=== PATIENT | male | born 1940 | race Caucasian/White ===

== ENCOUNTER 2024-09-12 07:55 | Outpatient (CLI) | payer MEDICARE, SELFPAY | END 2024-09-12 07:56 | disposition home or self-care (01) | LOC: MRI 07:56 | PROVIDERS: PCP Family Medicine; Visit Provider Orthopaedic Surgery | DX: M25.561 Pain in right knee (principal); S83.281A Other tear of lateral meniscus, current injury, right knee, initial encounter; M94.261 Chondromalacia, right knee; M25.461 Effusion, right knee | CPT/HCPCS: 73721 ==

== ENCOUNTER 2024-10-02 07:45 | Outpatient (RCR) | payer MEDICARE, SELFPAY ==
--- NOTE | 2024-09-19 15:41 | PT.OPEX ---
PT [place] Outpatient Eval PT 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 Cortisone injection 09/18/24 right knee Referring MD Dr. Mendoza Subjective Preferred Name Eron Subjective Patient is a 83 year old male who presents to physical therapy with signs and symptoms consistent with right knee pain. He states that he had a cortisone injection on 09/18/24. He reports some improvement from the shot yesterday. He reports that he is going to [place] on October 07. He states that he does get some swelling in his right lower calf and that this has been going on for a long time. He reports that his physician is aware and they are figuring out what it is coming from. He states that his knee has been having pain for at least a year. No complaints of numbness or tingling in his knee. He goes to [employer] in [place]. He does some different cardio machines and leg press at the gym. He uses the steam room and whirlpool along with the cold pool as well. He also does a lot of wood cutting at his property in the [facility]. Aggravating factors include: uneven walking. Alleviating factors include: cortisone shot and sleep. Significant past medical history includes bilateral rotator cuff repairs (5 plus years ago). Patient would like to achieve less pain through physical therapy sessions. Pain Comments Today: 3.5-4/10 on a 0-10 pain scale with 10 = extreme pain At its worst: 8/10 At its best: 3.5-4/10 Current Work Status Retired Occupation Previous [employer] Precautions Weight Bearing Status Full Weight Bearing Therapy Limitations/Systems Review Not Limited Objective Other/Pertinent Objective GAIT/FUNCTIONAL MOBILITY Shuffling gait, uses cane outside (no cane today) Single leg stance: no increase in pain, difficulty maintaining balance Squat: no increase in pain KNEE ROM Extension/Flexion: R 0-115, L 0-130 HIP ROM Grossly tested WNL B LLE MMT: Hip flexion: R 4+/5 L 4+/5 Hip abduction: R 4+/5 L 4+/5 Hip extension: R 4+/5 L 4+/5 Knee flexion: R 5/5 L 5/5 Knee extension: R 5/5 L 5/5 SPECIAL TEST -Anterior drawer: neg -Ailyn test: neg -Posterior Drawer: neg -Valgus Test: neg -Varus Test: neg -Joint line tenderness: pos on R -Seth test: pos on R -hyper flexion test: neg -Lewis Compression: neg -Hip quadrant test: neg -MODESTO test: neg -FADIR test: neg -Trochanteric Bursitis Test: neg JOINT MOBILITY/PALPATION Tenderness with palpation of lateral joint line of right knee TX: Access Code: [email or web address] URL: [email or web address]/ Date: 09/19/2024 Prepared by: Amna Verduzco Exercises - Supine Quadricep Sets - 1 x daily - 7 x weekly - 3 sets - 10 reps - Supine Heel Slide - 3-5 x daily - 20 reps - Supine Short Arc Quad - 2-3 x daily - 20 reps - 3 hold - Active Straight Leg Raise with Quad Set - 2-3 x daily - 1-2 sets - 10 reps - 2-3 second hold - Sidelying Hip Abduction - 2 -3 x daily - 1-2 sets - 10 reps Functional Test Performed & Score . Assessment Assessment/Impression Pt is a 83 year old male who presents with concerns of unstable gait. Patient also has notable objective findings including limited ROM, tenderness to palpation, and decreased strength which are also likely contributing to the problem. Patient is a good candidate for skilled therapy to target deficits described above. Skilled PT intervention is necessary for use of therapeutic exercise manual therapy, neuromuscular re- education, gait training, and therapeutic activity. Functional impairments include difficulty with: standing, walking, exercising and ADLs. See appropriate sections of PT eval for complete list of goals and POC. D/C plan and criteria is for pt to achieve the goals as listed below or until max rehab potential is met. Pt was agreeable with plan of care and goals established. Primary Functional Limitations standing walking exercising ADLs Plan of Care Rehabilitation Potential Good Physical Therapy Goals Within 10-12 weeks: 1.Pt will demonstrate independence in performance of home exercise program with the use of video and/or handouts in order to optimize functional mobility and reduce risk for re-injury. 2.Pt will demonstrate consistent HEP compliance to ensure progress in reaching established goals during course of care. 3.Patient will be able to cut wood on his property for up to one hour without pain. 4.Patient will report pain levels <2/10 with all activities in order to improve functional mobility at home, work and during functional leisure activities. 5.Patient is able to sleep without waking more than one time due to pain in a 6-8 hour time frame. 6.Patient will be able to walk up to one mile without pain. 7.Pt will be able to ascend/ descend 1 flight of stairs in order to perform ADLs pain free. Coordination/Communication With Referral Source Treatment Plan/Direct Interventions Joint Mobilization,Manual Therapy,Neuromuscular Re-ed, Therapeutic Activities, Therapeutic Exercises Patient Will Be Discharged From Therapy Independently Progressing Evaluation Billing Untimed Code Treatment Minutes 30 Complexity Low Certification Information Provider Signature Required Yes Provider Signature Shows Agreement With POC & Medical Necessity Physician NPI Number Write NPI# Here Physician Comment/Change : Physician Signature & Date Requested Please Sign/Date Here
== END 2024-12-04 09:42 | disposition home or self-care (01) ==
PROVIDERS: PCP Family Medicine; Visit Provider Orthopaedic Surgery
DX: M17.11 Unilateral primary osteoarthritis, right knee (principal); S83.281A Other tear of lateral meniscus, current injury, right knee, initial encounter; Z51.89 Encounter for other specified aftercare
CPT/HCPCS: 97110; 97161

== ENCOUNTER 2024-11-06 11:00 | Outpatient (RCR) | payer MEDICARE, SELFPAY | END 2024-12-29 09:23 | disposition home or self-care (01) | PROVIDERS: PCP Family Medicine; Visit Provider Family Medicine | DX: R26.81 Unsteadiness on feet (principal); Z51.89 Encounter for other specified aftercare | CPT/HCPCS: 97112; 97116; 97161; 97530 ==

== ENCOUNTER 2025-07-06 09:49 | Outpatient (CLI) | payer MEDICARE, SELFPAY | END 2025-07-06 09:50 | disposition home or self-care (01) | LOC: WOUND 09:53 | PROVIDERS: PCP Family Medicine; Visit Provider Physician Assistant | DX: S51.811A Laceration without foreign body of right forearm, initial encounter (principal); W19.XXXA Unspecified fall, initial encounter | CPT/HCPCS: G0463 ==

== ENCOUNTER 2025-07-13 08:37 | Outpatient (CLI) | payer MEDICARE, SELFPAY | END 2025-07-13 08:38 | disposition home or self-care (01) | LOC: WOUND 08:37 | PROVIDERS: PCP Family Medicine; Visit Provider Nurse Practitioner Family | DX: S51.811A Laceration without foreign body of right forearm, initial encounter (principal); W22.8XXA Striking against or struck by other objects, initial encounter | CPT/HCPCS: G0463 ==